=== PATIENT | male | born 1995 | race Caucasian/White ===

== ENCOUNTER 2017-08-03 16:05 | Emergency (ER) | payer OTHER ==
[~2017-08-03 16:05] MED LIST: MOTRIN600 MG PO; NAPROSYN500 MG PO; VALIUM5 MG PO
[2017-08-03 16:25] LABS: BASOPHIL (%) 0.8 % (0-1); BASOPHIL COUNT 0.1 K/uL (0-0.1); EOSINOPHIL (%) 1.2 % (0-5); EOSINOPHIL COUNT 0.1 K/uL (0-0.3); HEMATOCRIT 44.5 % (38.0-50.0); HEMOGLOBIN 15.1 G/DL (12.5-16.6); IMMATURE GRANULOCYTE (%) 0.2 % (0.0-0.7); LYMPHOCYTE (%) 34.5 % (15-42); LYMPHOCYTE COUNT 3.5 K/uL (1.0-2.8); MCH 30.1 PG (29.0-34.0); MCHC 33.9 G/DL (30.0-36.0); MCV 88.6 FL (86-99); MONOCYTE (%) 6.7 % (3-12); MONOCYTE COUNT 0.7 K/uL (0-0.8); NEUTROPHIL (%) 56.6 % (45-76); NEUTROPHIL COUNT 5.8 K/uL (1.8-6.4); PLATELET COUNT 286 K/uL (156-360); RBC DIS.WIDTH-CV 12.4 % (11.8-14.6); RBC DIS.WIDTH-SD 40.1 % (39-53); RED BLOOD COUNT 5.02 M/uL (4.00-5.50); WHITE BLOOD COUNT 10.2 K/uL (4.1-10.2)
[2017-08-03 16:34] LABS: AMYLASE 33 IU/L (1-118); CHLORIDE 104 mEq/L (99-109); POTASSIUM 3.6 mEq/L (3.7-5.4); SODIUM 139 mEq/L (136-147)
[2017-08-03 16:36] LABS: GLUCOSE 97 mg/dL (70-99)
[2017-08-03 16:39] LABS: SERUM ETHYL ALCOHOL < 10 mg/dL
[2017-08-03 16:40] LABS: CREATININE 0.9 mg/dL (0.6-1.3); GFR ESTIMATE (CALCULATED) > 59 mL/min/ (58.99-99999)
[2017-08-03 16:41] LABS: UREA NITROGEN (BUN) 12 mg/dL (9-23)
[2017-08-03 16:43] LABS: LIPASE 25 U/L (1.0-51.0)
[2017-08-03 17:54] LABS: APPEARANCE CLEAR ((CLEAR)); BILIRUBIN NEGATIVE; BLOOD NEGATIVE; COLOR STRAW ((YELLOW)); GLUCOSE (STRIP) NEGATIVE; KETONES NEGATIVE; LEUKOCYTES NEGATIVE; NITRITE NEGATIVE; PROTEIN (STRIP) NEGATIVE; SPECIFIC GRAVITY 1.031 (1.000-1.030); UCUL ADDED? NO; UROBILINOGEN 0.2 MG/DL (0.2-1.0)
[2017-08-03 18:03] LABS: AMPHETAMINE NEGATIVE (500 ng/mL); BARBITURATES NEGATIVE (200 ng/mL); BENZODIAZEPINES NEGATIVE (150 ng/mL); BUPRENORPHINE NEGATIVE (10 ng/mL); COCAINE NEGATIVE (150 ng/mL); METHADONE NEGATIVE (200 ng/mL); METHAMPHETAMINE NEGATIVE (500 ng/mL); OPIATES (MORPHINE) NEGATIVE (100 ng/mL); OXYCODONE NEGATIVE (100 ng/mL); PHENCYCLIDINE NEGATIVE (25 ng/mL); PROPOXYPHENE NEGATIVE (300 ng/mL); THC CANNABINOIDS NEGATIVE (50 ng/mL); TRICYCLIC ANTIDEPRESSANTS NEGATIVE (300 ng/mL)
[2017-08-03 18:58] VITALS: BP 142/92
== END 2017-08-03 19:00 | disposition home or self-care (01) ==
LOC: EME 16:05 → TRA 16:05
PROVIDERS: Emergency Medicine
DX: M54.9 Dorsalgia, unspecified (principal); R10.30 Lower abdominal pain, unspecified; R07.9 Chest pain, unspecified; R56.9 Unspecified convulsions; V49.40XA Driver injured in collision with unspecified motor vehicles in traffic accident, initial encounter; Y92.410 Unspecified street and highway as the place of occurrence of the external cause; Z88.5 Allergy status to narcotic agent; Z88.8 Allergy status to other drugs, medicaments and biological substances
CPT/HCPCS: 70450; 71260; 72125; 74177; 80048; 81003; 82150; 83690; 85025; 86850; 86900; 86901; 93005; G0480

== ENCOUNTER 2017-11-29 15:46 | Emergency (ER) | payer OTHER ==
[~2017-11-29] VITALS: Ht 180.3 cm; Wt 55.8 kg
[2017-11-29 18:03] VITALS: BP 138/77
== END 2017-11-29 18:41 | disposition home or self-care (01) ==
LOC: EME 15:46
DX: S43.401A Unspecified sprain of right shoulder joint, initial encounter (principal); S83.91XA Sprain of unspecified site of right knee, initial encounter; X50.9XXA Other and unspecified overexertion or strenuous movements or postures, initial encounter; Y93.H2 Activity, gardening and landscaping
CPT/HCPCS: 73564; 99281; 99284

== ENCOUNTER → 2017-12-06 | Outpatient (CLI) | payer OTHER | END | disposition home or self-care (01) | LOC: EEG 10:00 | DX: R56.9 Unspecified convulsions (principal) | CPT/HCPCS: 95954 ==